=== PATIENT | male | born 1955 | race American Indian/Alaskan Native ===

== ENCOUNTER 2017-03-07 12:56 | Outpatient (CLI) | payer OTHER ==
--- NOTE | 2017-03-07 14:08 | XRay Report ---
Bilateral shoulders, 3 views of each: Arthritis, neuropathy Routine views of both shoulders demonstrate normal positioning with good preservation of the subacromial spaces and joint spaces. The articular margins are smooth. The bones are well-mineralized. Impression: Normal exam bilaterally.
== END 2017-03-07 12:57 | disposition home or self-care (01) ==
LOC: XRAY 12:56
PROVIDERS: ATTEND Internal Medicine
DX: E11.40 Type 2 diabetes mellitus with diabetic neuropathy, unspecified (principal); I11.9 Hypertensive heart disease without heart failure; I25.10 Atherosclerotic heart disease of native coronary artery without angina pectoris